=== PATIENT | female | born 1945 | race Caucasian/White ===

== ENCOUNTER 2019-10-02 13:17 | Emergency (ER) | payer OTHER ==
[~2019-10-02] VITALS: Ht 167.6 cm; Wt 79.5 kg
[2019-10-02 13:21] VITALS: BP 150/59
[2019-10-02] MEDS ORDERED: LIDOcaine 1% W/epiNEPHrine 1:200,000 10ml vial IJ ONE (14:10)
[2019-10-02] MEDS ORDERED: TETanus/Pertussis (Acell)/Diphther VAC/PF (Tdap-Adult) 0.5ml syringe IMVAC ONE (14:10)
== END 2019-10-02 15:13 | disposition home or self-care (01) ==
LOC: EDSEX 13:18 → ER 13:18
DX: S61.215A Laceration without foreign body of left ring finger without damage to nail, initial encounter (principal); S80.02XA Contusion of left knee, initial encounter; W08.XXXA Fall from other furniture, initial encounter; Y93.89 Activity, other specified; Y92.89 Other specified places as the place of occurrence of the external cause; Y99.8 Other external cause status
CPT/HCPCS: 12001; 73564; 90471; 90715; 99284